=== PATIENT | male | born 2000 | race African-American/Black ===

== ENCOUNTER 2019-04-28 21:04 | Emergency (ER) | payer OTHER ==
[2019-04-28 21:14] VITALS: BP 125/81; PULSE 61; TEMP 98.3; BMI 22.2
--- NOTE | 2019-04-28 21:18 | PDOC ---
Rapid Medical Evaluation Chief Complaint: Pain Time Seen by Provider: 04/28/19 21:14 Medical Evaluation: Allergies Allergy/AdvReac Type Severity Reaction Status Date / Time Penicillins Allergy Verified 04/28/19 21:14 Vital Signs Temp Pulse Resp BP Pulse Ox 98.3 F 61 18 125/81 99 04/28/19 21:10 04/28/19 21:10 04/28/19 21:10 04/28/19 21:10 04/28/19 21:10 04/28/19 21:17 Pt c/o: clau itchy feet x months Pt on brief exam: + tinea pedis pt ordered for: none Pt to proceed to the ED Discharge Disposition - Diagnosis Tinea pedis Qualifiers: Laterality: left Qualified Code(s): B35.3 - Tinea pedis - Discharge Dispostion Disposition: HOME Condition at time of disposition: Stable - Prescriptions Prescriptions: Terbinafine HCl [Terbinafine] 15 gm TP BID #1 cream..g. - Referrals Referrals: Grant Horvath MD [Staff Physician] - Call tomorrow - Patient Instructions Printed Discharge Instructions: DI for Athlete's Foot Additional Instructions: Thank you for choosing [facility]. It was a pleasure taking care of you. Possibly this is fungal infection You were given a different topical antifungal cream to try. You were referred to booth usher for further evaluation Return to the Emergency Department if your symptoms worsen or persist, have fever, redness, open wound with pustular discharge or other concerning symptoms. - Post Discharge Activity
--- NOTE | 2019-04-28 22:26 | PDOC ---
History of Present Illness - General Chief Complaint: Pain Stated Complaint: LEFT FOOT DISCOMFORT Time Seen by Provider: 04/28/19 21:14 History Source: Patient Exam Limitations: No Limitations Past History - Past Medical History Allergies/Adverse Reactions: Allergies Allergy/AdvReac Type Severity Reaction Status Date / Time Penicillins Allergy Verified 04/28/19 21:14 Home Medications: Ambulatory Orders Terbinafine HCl [Terbinafine] 15 gm TP BID #1 cream..g. 04/28/19 COPD: No - Suicide/Smoking/Psychosocial Hx Smoking History: Never smoked *Physical Exam - Vital Signs Last Vital Signs Temp Pulse Resp BP Pulse Ox 98.3 F 61 18 125/81 99 04/28/19 21:10 04/28/19 21:10 04/28/19 21:10 04/28/19 21:10 04/28/19 21:10 - Physical Exam General Appearance: No: Apparent Distress Integumentary: positive: Other (+tinea pedis between 4th and 5th L toes, no erythema, no swelling, no discharge, no warmth, rest of L foot unremarkable) Medical Decision Making - Medical Decision Making 19 y/o M with no sig pmh presents with rash between L 4th and 5th toes for months. Was initially itchy but not any longer. Has tried various OTC antifungal meds, including Clotrimazole, which he is using now, but states rash has not gone away. Meds were recommended by his mother. Patient has not seen a doctor regarding this yet. Denies fever, redness, discharge. No sign of foot infection Appears as possible chronic tinea pedis Will try topical terbinafine and refer to podiatry for further evaluation 04/28/19 22:22 *DC/Admit/Observation/Transfer Diagnosis at time of Disposition: Tinea pedis Qualifiers: Laterality: left Qualified Code(s): B35.3 - Tinea pedis - Discharge Dispostion Disposition: HOME Condition at time of disposition: Stable Decision to Admit order: No - Prescriptions Prescriptions: Terbinafine HCl [Terbinafine] 15 gm TP BID #1 cream..g. - Referrals Referrals: Grant Horvath MD [Staff Physician] - Call tomorrow - Patient Instructions Printed Discharge Instructions: DI for Athlete's Foot Additional Instructions: Thank you for choosing [facility]. It was a pleasure taking care of you. Possibly this is fungal infection You were given a different topical antifungal cream to try. You were referred to heat treat worker for further evaluation Return to the Emergency Department if your symptoms worsen or persist, have fever, redness, open wound with pustular discharge or other concerning symptoms. - Post Discharge Activity
== END 2019-04-28 22:32 | disposition home or self-care (01) ==
LOC: JERFT 21:04
DX: B35.3 Tinea pedis (principal); Z88.0 Allergy status to penicillin
CPT/HCPCS: 99282-25

== ENCOUNTER 2021-08-18 10:21 | Emergency (ER) | payer OTHER ==
[2021-08-18 10:32] VITALS: BP 109/61; PULSE 67; TEMP 98; BMI 23.1
[2021-08-18] MEDS ORDERED: DIPHTH,PERTUSS(ACELL),TET 0.5 ML DISP.SYRIN IM ONE ×2 (11:09→11:30)
[2021-08-18] MEDS ORDERED: IBUPROFEN 600 MG TABLET (FP) PO ONE ×2 (11:34→11:35)
== END 2021-08-18 11:47 | disposition home or self-care (01) ==
LOC: JER 10:21
PROC: 3E0234Z Introduction of Serum, Toxoid and Vaccine into Muscle, Percutaneous Approach (ICD-10-PCS; principal; 2021-08-18)
DX: S91.332A Puncture wound without foreign body, left foot, initial encounter (principal); W45.0XXA Nail entering through skin, initial encounter; Y92.9 Unspecified place or not applicable
CPT/HCPCS: 73630-TC-LT; 90715; 99284-25